=== PATIENT | male | born 1965 | race Caucasian/White ===

== ENCOUNTER 2016-07-18 05:40 | Day surgery (SDC) | payer MEDICARE, MEDICAID ==
[~2016-07-18] VITALS: Ht 166.4 cm; Wt 70.9 kg
--- NOTE | 2016-07-22 10:11 | OR ---
ADMIT: 07/18/2016 RM/LOC: [facility] MR#: [id number] [address] [address] [place], [place] [id number] Operative/Delivery Room Report SEX: M AGE: 51 : 1965 SURGERY DATE: 07/18/2016 SURGEON: Dominic Holguin MD PREOPERATIVE DIAGNOSIS: Vagal nerve stimulator with internal pulse generator at the end of its useful life expectancy with need for removal and implantation of new internal pulse generator. POSTOPERATIVE DIAGNOSIS: Vagal nerve stimulator with internal pulse generator at the end of its useful life expectancy with need for removal and implantation of new internal pulse generator. PROCEDURE: Removal of left infraclavicular internal pulse generator with connection to vagal nerve stimulator single electrode system with intraoperative programming and cardiac capture with programming. DESCRIPTION OF PROCEDURE: After gaining informed consent, the patient was taken to the operative theater, placed under general endotracheal anesthesia in supine position. A time-out was utilized to ascertain the correct site and side of surgery as well as other pertinent patient historical information. Counts were obtained at the beginning and the end of the case with no change betwixt the two. Antibiotics were given within 1 hour of incision. Left infraclavicular region was opened. Internal pulse generator was discovered and brought in the field and disconnected from the single electrode system. Multiple glove changes were used throughout this case. The new internal pulse generator was brought into the field and connected. The auto stem detection was able to capture the heart rate and program settings were placed with normal setting of 3.25 milliamps, 30 Hz, 500 microseconds, 30 seconds on, 1 minute off time with a Magna setting 3.5 milliamps, 500 ADMIT: 07/18/2016 RM/LOC: [facility] MR#: [id number] [address] [place] [address] Operative/Delivery Room Report SEX: M AGE: 51 : 1965 microseconds, and 60 seconds on time, and the auto stem at 0 milliamps for further capture and programming as necessary later. The wound was closed with multiple layers of simple, inverted, and interrupted 2-0 Vicryl, subcuticular 3-0 Monocryl and Steri-Strips over that. COMPLICATIONS: None. ESTIMATED BLOOD LOSS: Charted. SPECIMEN: IPG. DISPOSITION: Taken to the postanesthesia care unit for discharge. Dominic Holguin MD/ alda JOB #: [id number] CC: Dominic Holguin, Attending Physician David Isbell, Family Physician
== END 2016-07-18 10:03 | disposition home or self-care (01) ==
LOC: SSS 05:40
PROC: 0JH60BZ Insertion of Single Array Stimulator Generator into Chest Subcutaneous Tissue and Fascia, Open Approach (ICD-10-PCS; principal; 2016-07-18)
PROC: 0JPT0MZ Removal of Stimulator Generator from Trunk Subcutaneous Tissue and Fascia, Open Approach (ICD-10-PCS; principal; 2016-07-18)
DX: Z46.2 Encounter for fitting and adjustment of other devices related to nervous system and special senses (principal); G40.909 Epilepsy, unspecified, not intractable, without status epilepticus; Z88.8 Allergy status to other drugs, medicaments and biological substances; Z79.899 Other long term (current) drug therapy